=== PATIENT | female | born 1945 | race Caucasian/White ===

== ENCOUNTER → 2018-03-03 | Outpatient (CLI) | payer OTHER ==
[~2018-03-03] MED LIST: ALEVE220 MG PO; ANTIVERT25 MG PO; ASPIR 8181 MG PO; AZELASTINE137 MCG/0. NASAL; BACTRIM DS TAB1 EACH PO; CALCIUM 500 +1 EAC5 PO; CENTRUM SILVER1 EAC4 PO; CIPRO500 MG PO; FERREX 150 PLU1 EAC1 PO; FISH OIL 1,001000 M2 PO; FLAGYL500 MG PO; FLONASE 0.05%50 MCG NASAL; GLUCOSAMINE HC500 MG PO; LISINOPRIL20 MG PO; MACROBID 100 M100 M3 PO; MULTIVITAMINS PO; NASONEX17 GM NASAL; OMEPRAZOLE 20 M20 M1 PO; OMEPRAZOLE10 MG PO; PAXIL10 MG; PRILOSEC 20 MG20 MG PO; PROBIOTIC1 EAC2 PO; SINGULAIR 10 MG10 M1 PO; TRANSDERM-SCO1 PATC1 TD; TRANSDERM-SCO1 PATC1 TRANSDERM; TYLENOL EXTRA500 MG PO; VALIUM5 MG PO; VITAMIN C500 MG/15 PO; VITAMIN E400 UNIT PO; VITAMINC500 PO
--- NOTE | 2018-03-03 13:53 | EKG ---
[place] [address] ELECTROCARDIOGRAM REPORT Name: MARINE WALKER Room: [facility]#: [id number] Admission: 03/03/18 Attend Phys: Gerard Benson Discharge: Date of : 43 Report #: [id number] THIS REPORT FOR: //name// [facility] Test Date: 2018-03-03 Test Time: 11:41:11 Pat Name: MARINE WALKER Department: Room: Gender: F Personal Financial Representative: ESTER : 1945 Requested By: Lukasz Ahn Order Number: [id number] Rolando MD: Chao Allen Measurements Intervals [place] Rate: 73 P: 24 OH: 176 QRS: 20 QRSD: 88 T: 29 QT: 373 QTc: 411 Interpretive Statements Sinus rhythm Anterior infarct, old Compared to ECG 01/04/2017 20:30:35 Myocardial infarct finding now present Electronically Signed On 03-03-2018 13:53:05 CDT by Chao Allen [email or web address] <ELECTRONICALLY SIGNED> By: Chao Allen MD, [facility] 03/03/18 1353 1141 1141 Chao Allen MD, FACC /EPI
== END ==
LOC: M.CRD 11:11
DX: Z01.818 Encounter for other preprocedural examination (principal); N39.3 Stress incontinence (female) (male)

== ENCOUNTER 2018-03-25 16:41 | Emergency (ER) | payer OTHER ==
[~2018-03-25] VITALS: Ht 167.6 cm; Wt 86.2 kg
[~2018-03-25 16:41] MED LIST changes: -BACTRIM DS TAB1 EACH PO; -FERREX 150 PLU1 EAC1 PO; -MACROBID 100 M100 M3 PO; -OMEPRAZOLE 20 M20 M1 PO; -PROBIOTIC1 EAC2 PO; -SINGULAIR 10 MG10 M1 PO
[2018-03-25] MEDS ORDERED: SINGULAIR 10 MG10 M1 PO (17:16)
[2018-03-25 17:44] LABS: URINE BILIRUBIN NEGATIVE (Negative); URINE BLOOD 3+ (Negative); URINE CLARITY CLOUDY; URINE COLOR YELLOW; URINE GLUCOSE-RANDOM NEGATIVE (Negative); URINE KETONES NEGATIVE (Negative); URINE LEUKOCYTES-REFLEX 3+ (Negative); URINE NITRITE-REFLEX POSITIVE (Negative); URINE PROTEIN 3+ (Negative); URINE SPECIFIC GRAVITY 1.015 (1.005-1.030); URINE UROBILINOGEN 0.2 E.U./dl (0.2-1.0)
[2018-03-25 17:49] LABS: BACTERIA-REFLEX >30 Many /HPF (None Seen); CASTS None Seen /LPF (None Seen); CRYSTALS None Seen /LPF (None Seen); SQUAMOUS NONE SEEN /LPF (0-3); URINE RBC >20 Many /HPF (0-2); URINE WBC-REFLEX >25 Many /HPF (0-5)
[2018-03-25 17:50] LABS: ABSOLUTE BASOPHILS 0.1 thou/uL (0.0-0.2); ABSOLUTE LYMPHOCYTES 1.8 thou/uL (0.8-5.3); ABSOLUTE MONOCYTES 1.2 thou/uL (0.0-1.2); ABSOLUTE NEUTROPHILS 12.1 thou/uL (1.6-8.1); BASOPHILS 0.4 %; EOSINOPHILS 0.2 %; HEMOGLOBIN 12.2 gm/dL (12.0-15.0); LYMPHOCYTES 12.1 %; MCH 30.4 pg (26.0-34.0); MCV 92.2 fL (80.0-100.0); MONOCYTES 7.8 %; MPV 6.7 fl. (7.2-11.1); NUCLEATED RBCS 0 /100WBC; PLATELET COUNT* 247 thou/uL (150-400); POLYS 79.5 %; RBC 4.01 mil/uL (4.20-5.00); RDW-CV 12.9 % (10.5-14.5); WBC 15.3 thou/uL (4.0-11.0)
[2018-03-25] MEDS ORDERED: BACTRIM DS TAB1 EACH PO (17:55)
[2018-03-25 17:57] LABS: CALCIUM 8.1 mg/dL (8.5-10.1); CREATININE 0.9 mg/dL (0.6-1.3); POTASSIUM 3.8 mmol/L (3.5-5.1)
[2018-03-25 18:01] LABS: ALBUMIN 3.1 g/dL (3.4-5.0); TOTAL BILIRUBIN 0.6 mg/dL (<0.1-1.0); TOTAL PROTEIN 6.7 g/dL (6.4-8.2)
[2018-03-25 18:53] VITALS: BP 110/61
== END 2018-03-25 18:54 | disposition home or self-care (01) ==
LOC: M.ERS 16:41
PROVIDERS: Physician Assistant
DX: N39.0 Urinary tract infection, site not specified (principal); I10 Essential (primary) hypertension; K21.9 Gastro-esophageal reflux disease without esophagitis; Z88.0 Allergy status to penicillin

== ENCOUNTER 2018-05-04 09:31 | Inpatient (IN) | payer OTHER ==
[~2018-05-04] VITALS: Ht 167.6 cm; Wt 87.1 kg
[~2018-05-04 09:31] MED LIST changes: +BACTRIM DS TAB1 EACH PO; +SINGULAIR 10 MG10 M1 PO
[2018-05-04 09:50] LABS: URINE BILIRUBIN NEGATIVE (Negative); URINE BLOOD 1+ (Negative); URINE CLARITY SL CLOUDY; URINE COLOR YELLOW; URINE GLUCOSE-RANDOM NEGATIVE (Negative); URINE KETONES NEGATIVE (Negative); URINE LEUKOCYTES-REFLEX 3+ (Negative); URINE NITRITE-REFLEX NEGATIVE (Negative); URINE PROTEIN 1+ (Negative); URINE SPECIFIC GRAVITY <= 1.005 (1.005-1.030); URINE UROBILINOGEN 0.2 E.U./dl (0.2-1.0)
[2018-05-04 09:51] VITALS: BP 136/65
[2018-05-04 09:59] LABS: BACTERIA-REFLEX 1-9 Few /HPF (None Seen); MUCUS 0-3 Light strn/LPF (None Seen); SQUAMOUS 0-3 Few /LPF (0-3); URINE RBC 3-10 Few /HPF (0-2); URINE WBC-REFLEX >25 Many /HPF (0-5)
[2018-05-04 10:00] LABS: CASTS None Seen /LPF (None Seen); CRYSTALS None Seen /LPF (None Seen)
[2018-05-04] MEDS ORDERED: OMEPRAZOLE 20 M20 M1 PO (10:00)
[2018-05-04] MEDS ORDERED: VITAMINC500 PO (10:01)
[2018-05-04] MEDS ORDERED: PROBIOTIC1 EAC2 PO (10:02)
[2018-05-04 10:04] LABS: HEMATOCRIT 38.1 % (37.0-47.0); HEMOGLOBIN 12.5 gm/dL (12.0-15.0); MCH 30.3 pg (26.0-34.0); MCHC 32.7 g/dL (28.0-37.0); MCV 92.6 fL (80.0-100.0); MPV 7.1 fl. (7.2-11.1); NUCLEATED RBCS 0 /100WBC; PLATELET COUNT* 265 thou/uL (150-400); RBC 4.11 mil/uL (4.20-5.00); RDW-CV 12.7 % (10.5-14.5); WBC 15.7 thou/uL (4.0-11.0)
[2018-05-04 10:26] LABS: ALKALINE PHOSPHATASE 79 U/L (46-116); ANION GAP 11 mmol/L (7-16); BUN 16 mg/dL (7-18); CALCIUM 8.5 mg/dL (8.5-10.1); CHLORIDE 100 mmol/L (98-107); CO2 21 mmol/L (21-32); CREATININE 1.1 mg/dL (0.6-1.3); GLUCOSE 111 mg/dL (70-99); POTASSIUM 4.2 mmol/L (3.5-5.1); SGOT 13 U/L (15-37); SGPT 19 U/L (30-65); SODIUM 132 mmol/L (136-145); TOTAL BILIRUBIN 0.7 mg/dL (<0.1-1.0); TOTAL PROTEIN 7.1 g/dL (6.4-8.2); TROPONIN-I LEVEL <0.06 ng/mL (<0.06)
[2018-05-04 10:40] LABS: ABSOLUTE MONOCYTES 0.5 thou/uL (0.0-1.2); ABSOLUTE NEUTROPHILS 13.2 thou/uL (1.6-8.1); ANISOCYTOSIS 1+; PLATELET ESTIMATE ADEQUATE; POIKILOCYTOSIS 1+
[2018-05-04 11:51] VITALS: BP 93/46
[2018-05-04 11:55] VITALS: BP 112/58
--- NOTE | 2018-05-04 12:05 | NUR ---
PATIENT ADMITTED FROM ER TO ROOM 115. ALERT AND ORIENTED. DENIES PAIN. 2/3 BOLUS INFUSING. CEFAZOLIN GIVEN IN ER. PATIENT HAS LEFT FRAZIER INCISION FROM BASAL CELL CARCINOMA REMOVAL A FEW WEEKS AGO- PATIENT DOES DRESSING CHANGES AT NIGHT AFTER HER SHOWER. ORIENTED TO ROOM AND BED CONTROLS. VSS. CALL LIGHT WITHIN REACH. WILL CONTINUE TO MONITOR.
--- NOTE | 2018-05-04 13:20 | NUR ---
CALLED DR. MAYER WITH UPDATE ON PATIENT. PATIENT CURRENTLY HAS RIGORS. BP 98/80, HR 126, RR 20, TEMP 98.3 ORAL, SAT 100% ON RA. HYDROCODONE INEFFECTIVE FOR MUSCLE PAIN. MORPHINE GIVEN. AT BEDSIDE. WILL CONTINUE TO MONITOR.
[2018-05-04 13:25] VITALS: BP 98/80
--- NOTE | 2018-05-04 13:45 | NUR ---
DR. MAYER ADDED ZOSYN TO PATIENTS ANTIBIOTIC REGIMEN. PATIENT STATES SHE IS NOT ALLERGIC TO PCN SHE JUST GETS DIARRHEA SOMETIMES FROM IT, PATIENT IS OK WITH ADMINISTRATION OF ZOSYN.
--- NOTE | 2018-05-04 14:26 | EKG ---
[place] [address] ELECTROCARDIOGRAM REPORT Name: MARINE WALKER Room: [address] IN [facility]#: [id number] Admission: 05/04/18 Attend Phys: Cathleen Holcomb MD Discharge: Date of : 43 Report #: [id number] THIS REPORT FOR: //name// [facility] ED Test Date: 2018-05-04 Test Time: 10:16:17 Pat Name: MARINE WALKER Department: Room: Gender: F Surgical Services Asst: Zana ERWIN : 1945 Requested By: Milan Larios Order Number: [id number] MD: Chao Allen Measurements Intervals [place] Rate: 109 P: -13 NC: 149 QRS: -15 QRSD: 92 T: 19 QT: 299 QTc: 403 Interpretive Statements Sinus tachycardia Borderline left axis deviation Low voltage, precordial leads Baseline wander in lead(s) V4,V6 Compared to ECG 03/03/2018 11:41:11 Low QRS voltage now present Sinus rhythm no longer present Myocardial infarct finding no longer present Electronically Signed On 05-04-2018 14:26:25 CDT by Chao Allen [email or web address] <ELECTRONICALLY SIGNED> By: Chao Allen MD, FACC 05/04/18 1426 1016 1016 Chao Allen MD, FAC /EPI
--- NOTE | 2018-05-04 16:02 | NUR ---
PATIENT RESTING COMFORTABLY AT THIS TIME. IVF INFUSING ORDERED. ZOSYN ADMINISTERED. PATIENT FEELING BETTER. DAKOTA ROBLES APPLIED TO HELP WITH CHILLS. REPORT TO CHARLIE SANTOS.
[2018-05-04 17:03] VITALS: BP 91/39
--- NOTE | 2018-05-04 17:19 | NUR ---
ASSUMED TRANSFER OF CARE AT 1600. AGREE WITH PREVIOUS NURSES ASSESSMENT. PATIENT REMAINS ALERT AND ORIENTED. VITALS REMAIN STABLE ON ROOM AIR.FLUIDS INFUSING ORDERED. REMAINS AT BEDSIDE. CALL LIGHT IS WITHIN REACH AND NURSING WILL CONTINUE TO MONITOR.
[2018-05-04 19:55] VITALS: BP 94/37
--- NOTE | 2018-05-05 04:55 | NUR ---
PT RESTED WELL THORUGHOUT HOURLY ROUNDS REMAIN AFEBRILE, IV FLUIDS INFUSING AND IV ZOSYN GIVEN PRESCRIBED. UP VOIDING WITHOUT C/O OF RETENTION OR DISCOMFORT. WILL CONTINUE WITH CURRENT PLAN OF CARE.
[2018-05-05 05:24] LABS: HEMATOCRIT 28.1 % (37.0-47.0); MCH 30.5 pg (26.0-34.0); MCHC 32.6 g/dL (28.0-37.0); MCV 93.6 fL (80.0-100.0); MPV 7.1 fl. (7.2-11.1); WBC 14.4 thou/uL (4.0-11.0)
[2018-05-05 05:32] LABS: HEMOGLOBIN 9.2 gm/dL (12.0-15.0)
[2018-05-05 05:38] LABS: CALCIUM 7.3 mg/dL (8.5-10.1); CREATININE 1.1 mg/dL (0.6-1.3); MAGNESIUM 1.3 mg/dL (1.8-2.4); POTASSIUM 3.8 mmol/L (3.5-5.1)
--- NOTE | 2018-05-05 05:38 | NUR ---
AGREE WITH ALL CHARTING BY DELICIA ROSA.
[2018-05-05 09:37] VITALS: BP 114/59
--- NOTE | 2018-05-05 15:45 | NUR ---
PT.ALERT AND ORIENTED. STATED SHE LIVES WITH HER . SHE IS INDEPENDENT WITH EVERYTHING. DRIVES,COOKS,SHOPS,CLEANS,DOES THE LAUNDRY. SHE DOES HAVE TO GO DOWN [address] TO DO THE LAUNDRY. SHE DOES NOT HAVE TROUBLE WITH THE STEPS. SHE HAS NO HX OF DME/HH/SNF. SHE DOES NOT FEEL SHE WILL HAVE ANY DISCHARGE NEEDS.
[2018-05-05 16:00] VITALS: BP 111/55
--- NOTE | 2018-05-05 18:44 | NUR ---
ASSUMED CARE OF PATIENT AFTER MORNING REPORT. ALERT AND ORIENTED X4. ASSESSMENT COMPLETED AND CHARTED. VSS ON ROOM AIR. NO COMPLAINTS OF PAIN, NAUSEA, OR SOA THIS SHIFT. IV IS PATENT, FLUIDS AND ANTIBIOTICS INFUSING ORDERED. CURRENTLY NPO FOR CT TONIGHT, IF RADIOLOGY CAN FIT HER IN AFTER SHE HAS BEEN NPO FOR 4 HOURS, OR CT IN THE MORNING IF UNABLE TO FIT HER IN. HOURLY ROUNDS MAINTAINED, CALL LIGHT IN REACH, NURSING WILL CONTINUE TO MONITOR.
[2018-05-05 20:00] VITALS: BP 123/60
[2018-05-06 04:12] LABS: ABSOLUTE BASOPHILS 0.1 thou/uL (0.0-0.2); ABSOLUTE EOSINOPHILS 0.1 thou/uL (0.0-0.7); ABSOLUTE LYMPHOCYTES 1.2 thou/uL (0.8-5.3); ABSOLUTE MONOCYTES 0.9 thou/uL (0.0-1.2); ABSOLUTE NEUTROPHILS 5.4 thou/uL (1.6-8.1); BASOPHILS 0.9 %; EOSINOPHILS 0.9 %; HEMOGLOBIN 9.4 gm/dL (12.0-15.0); LYMPHOCYTES 16.1 %; MCH 31.1 pg (26.0-34.0); MCHC 33.6 g/dL (28.0-37.0); MCV 92.6 fL (80.0-100.0); MONOCYTES 11.4 %; MPV 7.4 fl. (7.2-11.1); NUCLEATED RBCS 0 /100WBC; PLATELET COUNT* 193 thou/uL (150-400); POLYS 70.7 %; RBC 3.02 mil/uL (4.20-5.00); RDW-CV 13.1 % (10.5-14.5); WBC 7.7 thou/uL (4.0-11.0)
[2018-05-06 05:16] LABS: ALBUMIN 2.1 g/dL (3.4-5.0); CALCIUM 7.6 mg/dL (8.5-10.1); CREATININE 0.8 mg/dL (0.6-1.3); MAGNESIUM 1.5 mg/dL (1.8-2.4); POTASSIUM 3.3 mmol/L (3.5-5.1); TOTAL BILIRUBIN 0.4 mg/dL (<0.1-1.0)
--- NOTE | 2018-05-06 05:31 | NUR ---
ASSUMED CARE OF PT AT 1900 PT ALERT AND ORIENTED X4. VS AND ASSESSMENT STABLE. PT TAKEN TO CT AT 2100 AND RETURNED TO UNIT. PT THEN REQUESTED TYLENOL FOR AN HEADACHE THEN SLEPT THROUGH THE NIGHT. WILL CONTINUE PLAN OF CARE.
[2018-05-06 07:30] VITALS: BP 158/68
--- NOTE | 2018-05-06 15:00 | NUR ---
HELPED PT.WITH ADVANCE DIRECTIVE AND DPOA FOR HEALTH CARE DECISIONS AND NOTARIZED IT. COPY PLACED ON CHART. ORIGINAL AND COPIES GIVEN TO PT.
[2018-05-06 16:07] VITALS: BP 147/76
--- NOTE | 2018-05-06 18:28 | NUR ---
PT REMAINS A&OX4. VITALS REMAINED STABLE. NO REPORTS OF NAUSEA, PAIN, OR SOA. IV PATENT IN RIGHT FOREARM. PT AMBULATES OCCASIONALLY INDEPENDENTLY. HOURLY ROUNDS MAINTAINED. ANTICIPATES DISCHARGE TOMORROW, WILL CONTINUE TO MONITOR.
[2018-05-06 19:54] LABS: MAGNESIUM 1.6 mg/dL (1.8-2.4); POTASSIUM 4.2 mmol/L (3.5-5.1)
--- NOTE | 2018-05-06 20:04 | NUR ---
DALLIN GUERRA HAS REVIEWED AND AGREES WITH STUDENT NURSES CHARTING THROUGHOUT SHIFT.
[2018-05-07 02:59] LABS: MCH 30.9 pg (26.0-34.0); MCHC 33.3 g/dL (28.0-37.0); MCV 92.9 fL (80.0-100.0); MPV 7.5 fl. (7.2-11.1); RBC 3.22 mil/uL (4.20-5.00); RDW-CV 12.9 % (10.5-14.5); WBC 7.1 thou/uL (4.0-11.0)
[2018-05-07 03:13] LABS: ALBUMIN 2.3 g/dL (3.4-5.0); CALCIUM 8.2 mg/dL (8.5-10.1); CREATININE 0.8 mg/dL (0.6-1.3); MAGNESIUM 1.7 mg/dL (1.8-2.4); TOTAL BILIRUBIN 0.4 mg/dL (<0.1-1.0); TOTAL PROTEIN 5.9 g/dL (6.4-8.2)
--- NOTE | 2018-05-07 08:09 | NUR ---
UP AD ALBA IN ROOM. ALERT AND ORIENTED. CONTINUES ON IV ANTIBIODICS. TYLENOL GIVEN FOR HEADACHE AND HELPFUL. VOIDING WITHOUT DIFFICULTY. DRY DRESSING OVER LEFT LOWER EXTREMITY WOUND. CALL LIGHT WITHIN REACH.
[2018-05-07 08:35] VITALS: BP 130/67
[2018-05-07] MEDS ORDERED: CIPRO500 MG PO (08:44)
[2018-05-07] MEDS ORDERED: MACROBID 100 M100 M3 PO (08:44)
[2018-05-07] MEDS ORDERED: FERREX 150 PLU1 EAC1 PO (08:44)
[2018-05-07 09:50] VITALS: BP 147/76
--- NOTE | 2018-05-07 10:30 | NUR ---
PATIENT DISCHARGED TO HOME. DISCHARGE PAPERS REVIEWED AND SIGNED. PRESCRIPTIONS AND INFORMATION SHEETS GIVEN. IV REMOVED. SPOKE WITH UROLOGY AND RECOMMENDATIONS FOR DIRECTOR OF ONCOLOGY GIVEN TO PATIENT. PATIENT DENIES ANY FURTHER NEEDS. PATIENT TAKEN BY WHEELCHAIR TO EXIT. LEFT WITH .
--- NOTE | 2018-05-09 08:17 | CON ---
[address] [address] CONSULTATION Name: MARINE WALKER Room: [address] IN .R.#: [id number] Admission: 05/04/18 Attend Phys: Cathleen Holcomb MD Discharge: 05/07/18 Date of : 43 Report #: [id number] THIS REPORT FOR: //name// CC: Jose Daniel Holcomb DATE OF SERVICE: 05/05/2018 REFERRING PHYSICIAN: Cathleen Holcomb MD REASON FOR CONSULTATION: Right hydronephrosis and flank pain. HISTORY OF PRESENT ILLNESS: This is a 72-year-old female who follows in our office with Dr. Ahn regarding voiding dysfunction and urinary incontinence. About 2 days ago she developed right flank pain and chills intermittently. This became unremitting and she presented to the Emergency Department after an urgent care visit. She felt feverish and had chills at home, but did not take her temperature. Complains of intermittent right-sided flank pain with no exacerbating or relieving factors. No fever or chills. Reports chronic bladder prolapse for which she sees Gynecology and is hoping to have repair. She denies dysuria or gross hematuria. Some nausea, but no vomiting. She denies straining or sensation of incomplete emptying. PAST MEDICAL HISTORY: As above. Also, has a history of prior UTI years ago. She also has a history of gastroesophageal reflux. History of Meniere disease for which she follows with Neurology. Has hypertension as well for which she takes medication. ALLERGIES: INCLUDE PENICILLIN. MEDICATION LIST: Reviewed. She has been started on Rocephin empirically. PAST SURGICAL HISTORY: Includes cholecystectomy, oophorectomy, intestinal surgery, and eye surgery. FAMILY HISTORY: She does not know of any renal disease in the family. SOCIAL HISTORY: She quit tobacco years ago. Does not drink alcohol. She is and accompanied by her . REVIEW OF SYSTEMS: As per the history of present illness. No chest pain, shortness of breath or palpitations. PHYSICAL EXAMINATION: VITAL SIGNS: Temperature 36.9, pulse 82, respirations 16, blood pressure 114/59[place] [address] CONSULTATION Name: MARINE WALKER Room: [address]#: [id number] Admission: 05/04/18 Attend Phys: Cathleen Holcomb MD Discharge: 05/07/18 Date of : 43 Report #: [id number] GENERAL: This is a 72-year-old female, in no acute distress. She is awake, alert and oriented x 3. HEENT: Normocephalic, atraumatic. Extraocular movements are intact. NECK: Supple. No JVD. LUNGS: Respiratory effort and excursion are normal. CARDIAC: Rhythm is regular. Radial pulses are palpable. ABDOMEN: Soft, nontender and nondistended. Spine and costovertebral angles are nontender. Exam does not reproduce her symptoms. Bladder is nonpalpable. PELVIC: Deferred. EXTREMITIES: Warm. Moves all extremities well. No peripheral edema. LABORATORY DATA: Include sodium 139, potassium 3.8, chloride 109, CO2 of 23, BUN 13, creatinine 1.1, glucose 88. Hemoglobin is 9.2, white count 14.4, platelet count 187,000. Urinalysis revealed a few bacteria, 3-10 red cells and greater than 25 white cells. Urine and blood cultures are pending. Noncontrast CT scan of the abdomen and pelvis revealed perinephric stranding and mild right hydronephrosis. This also revealed a possible pancreatic lesion. Urologic findings were discussed with the patient. IMPRESSION: Right flank pain and subjective fever/chills as well as mild hydronephrosis with no definite source of obstruction. Findings may represent pyelonephritis. Radiology mentioned getting a contrast study to evaluate this further. I will order a CT abdomen and pelvis with IV contrast including delayed images for this purpose. I agree with Rocephin empirically pending culture results. We will follow along. We will defer evaluation of the pancreatic lesion and anemia to the primary service. <ELECTRONICALLY SIGNED> By: Alvaro Maldonado MD 05/09/18 0817 1222 [id number] Maldonado MD /nt
== END 2018-05-07 10:30 | disposition home or self-care (01) | DRG 690 ==
LOC: M.ERS 09:31 → M.ORTHSURG 10:21 → M.TBA-ER 10:21 → M.ORTHSURG 11:29
PROVIDERS: Emergency Medicine; Urology; ADMIT Internal Medicine
DX: N12 Tubulo-interstitial nephritis, not specified as acute or chronic (principal); R65.10 Systemic inflammatory response syndrome (SIRS) of non-infectious origin without acute organ dysfunction; E44.1 Mild protein-calorie malnutrition; H81.09 Meniere's disease, unspecified ear; K21.9 Gastro-esophageal reflux disease without esophagitis; N13.30 Unspecified hydronephrosis; F41.9 Anxiety disorder, unspecified; B96.20 Unspecified Escherichia coli [E. coli] as the cause of diseases classified elsewhere; N81.10 Cystocele, unspecified; D64.9 Anemia, unspecified; I10 Essential (primary) hypertension; I95.9 Hypotension, unspecified; Z79.2 Long term (current) use of antibiotics; Z79.899 Other long term (current) drug therapy; Z79.82 Long term (current) use of aspirin; Z88.0 Allergy status to penicillin; Z90.49 Acquired absence of other specified parts of digestive tract; Z87.891 Personal history of nicotine dependence; Z90.722 Acquired absence of ovaries, bilateral

== ENCOUNTER 2018-10-30 16:46 | Inpatient (IN) | payer OTHER ==
[~2018-10-30] VITALS: Ht 167.6 cm; Wt 87.5 kg
[~2018-10-30 16:46] MED LIST changes: +FERREX 150 PLU1 EAC1 PO; +MACROBID 100 M100 M3 PO; +OMEPRAZOLE 20 M20 M1 PO; +PROBIOTIC1 EAC2 PO
[2018-10-30 16:51] VITALS: BP 113/70
[2018-10-30 17:34] LABS: HEMATOCRIT 35.6 % (37.0-47.0); HEMOGLOBIN 11.9 gm/dL (12.0-15.0); MCH 29.3 pg (26.0-34.0); MCHC 33.3 g/dL (28.0-37.0); MCV 87.9 fL (80.0-100.0); MPV 6.9 fl. (7.2-11.1); NUCLEATED RBCS 0 /100WBC; PLATELET COUNT* 292 thou/uL (150-400); RBC 4.05 mil/uL (4.20-5.00); RDW-CV 13.2 % (10.5-14.5)
[2018-10-30 17:44] LABS: CALCIUM 8.4 mg/dL (8.5-10.1); CREATININE 1.1 mg/dL (0.6-1.3); POTASSIUM 3.6 mmol/L (3.5-5.1)
[2018-10-30 17:48] LABS: ALBUMIN 2.8 g/dL (3.4-5.0); TOTAL BILIRUBIN 0.5 mg/dL (<0.1-1.0); TOTAL PROTEIN 6.8 g/dL (6.4-8.2)
[2018-10-30 17:59] LABS: ABSOLUTE BASOPHILS 0.2 thou/uL (0.0-0.2); ABSOLUTE MONOCYTES 0.5 thou/uL (0.0-1.2); ABSOLUTE NEUTROPHILS 15.3 thou/uL (1.6-8.1)
[2018-10-30 18:00] LABS: PLATELET ESTIMATE ADEQUATE
[2018-10-30 18:08] LABS: BE -6.5 mmol/L (-2 to +3); HCO3 16.7 mmol/L (22.0-26.0); PCO2 26.4 mmHg (35.0-45.0); pH 7.419 (7.340-7.450)
[2018-10-30 18:15] LABS: PHOSPHORUS* 2.8 mg/dL (2.5-4.9); TROPONIN-I LEVEL <0.06 ng/mL (<0.06)
[2018-10-30 19:33] LABS: URINE BILIRUBIN NEGATIVE (Negative); URINE BLOOD TRACE (Negative); URINE CLARITY SL CLOUDY; URINE COLOR STRAW; URINE GLUCOSE-RANDOM NEGATIVE (Negative); URINE KETONES NEGATIVE (Negative); URINE PROTEIN NEGATIVE (Negative); URINE SPECIFIC GRAVITY <= 1.005 (1.005-1.030); URINE UROBILINOGEN 0.2 E.U./dl (0.2-1.0)
[2018-10-30 19:34] LABS: URINE LEUKOCYTES-REFLEX 3+ (Negative); URINE NITRITE-REFLEX POSITIVE (Negative)
[2018-10-30 19:43] LABS: SQUAMOUS 0-3 Few /LPF (0-3); WBC CLUMPS Few (None Seen)
[2018-10-30 19:44] LABS: URINE WBC-REFLEX >25 Many /HPF (0-5)
[2018-10-30 19:45] LABS: BACTERIA-REFLEX >30 Many /HPF (None Seen); CASTS None Seen /LPF (None Seen); MUCUS None Seen strn/LPF (None Seen); URINE RBC 0-2 Rare /HPF (0-2)
[2018-10-30 19:46] LABS: CRYSTALS None Seen /LPF (None Seen)
[2018-10-30 19:50] VITALS: BP 117/59
[2018-10-30 20:30] VITALS: BP 105/48
--- NOTE | 2018-10-30 20:30 | NUR ---
RECEIVED REPORT FROM ER, AMBULATED TO BED FROM CART WITH STEADY GAIT. NO ACUTE DISTRESS NOTED. TEMP AT THIS TIME 97.9. IV FLUIDS INFUSING. TELEMETRY APPLIED SHOWING SR. SEE ADMISSION ASSESSMENT AND HX. WILL CONT TO MONITOR AND ASSIST NEEDED.
[2018-10-30] MEDS ORDERED: OXYBUTYNIN 5 MG5 M2 PO (21:04)
[2018-10-30 23:15] VITALS: BP 125/56
[2018-10-31 04:00] VITALS: BP 103/52
--- NOTE | 2018-10-31 06:10 | NUR ---
PT HAD 2 EPISODES OF CHILLING BUT REMAINS AFEBRILE. GAIT STEADY TO AND FROM BR. TELEMETRY CONT TO SHOW SR. NO CHANGE IN ASSESSMENT. HS GOALS OF REST AND SAFETY ACHIEVED. HOURLY ROUNDING OBSERVED.
[2018-10-31 08:00] VITALS: BP 118/58
[2018-10-31 09:24] LABS: ABSOLUTE BASOPHILS 0.1 thou/uL (0.0-0.2); ABSOLUTE EOSINOPHILS 0.1 thou/uL (0.0-0.7); ABSOLUTE LYMPHOCYTES 1.5 thou/uL (0.8-5.3); ABSOLUTE MONOCYTES 1.2 thou/uL (0.0-1.2); ABSOLUTE NEUTROPHILS 8.9 thou/uL (1.6-8.1); BASOPHILS 0.6 %; EOSINOPHILS 0.5 %; HEMATOCRIT 29.2 % (37.0-47.0); LYMPHOCYTES 12.6 %; MCH 30.2 pg (26.0-34.0); MCHC 33.5 g/dL (28.0-37.0); MONOCYTES 10.2 %; MPV 7.3 fl. (7.2-11.1); NUCLEATED RBCS 0 /100WBC; PLATELET COUNT* 236 thou/uL (150-400); POLYS 76.1 %; RBC 3.25 mil/uL (4.20-5.00); RDW-CV 13.3 % (10.5-14.5); WBC 11.7 thou/uL (4.0-11.0)
[2018-10-31 09:36] LABS: HEMOGLOBIN 9.8 gm/dL (12.0-15.0)
[2018-10-31 09:42] LABS: CALCIUM 7.6 mg/dL (8.5-10.1); CREATININE 0.8 mg/dL (0.6-1.3); MAGNESIUM 1.6 mg/dL (1.8-2.4); POTASSIUM 3.3 mmol/L (3.5-5.1)
[2018-10-31] MEDS ORDERED: BACTRIM DS TAB1 EACH PO (10:09)
[2018-10-31 11:15] VITALS: BP 127/61
[2018-10-31 12:01] VITALS: BP 127/61
[2018-10-31 12:03] VITALS: BP 127/61
--- NOTE | 2018-10-31 12:55 | NUR ---
DISCHARGE INSTRUCTIONS REVIEWED WITH PT. DISCHARGE INSTRUCTIONS, EDUCATION MATERIALS AND PRESCRIPTION SENT WITH PT. PROJECT LEADER AND PIV REMOVED. ALL QUESTIONS ANSWERED
== END 2018-10-31 12:57 | disposition home or self-care (01) | DRG 872 ==
LOC: M.ERS 16:46 → M.2W 18:30 → M.TBA-ER 18:30 → M.2W 20:10
PROVIDERS: Family Medicine; Personal Emergency Response Attendant; ADMIT Internal Medicine
DX: A41.9 Sepsis, unspecified organism (principal); N39.0 Urinary tract infection, site not specified; E44.0 Moderate protein-calorie malnutrition; E83.42 Hypomagnesemia; E87.6 Hypokalemia; N18.2 Chronic kidney disease, stage 2 (mild); I12.9 Hypertensive chronic kidney disease with stage 1 through stage 4 chronic kidney disease, or unspecified chronic kidney disease; K52.9 Noninfective gastroenteritis and colitis, unspecified; K21.9 Gastro-esophageal reflux disease without esophagitis; F41.9 Anxiety disorder, unspecified; Z68.31 Body mass index [BMI] 31.0-31.9, adult; Z90.49 Acquired absence of other specified parts of digestive tract; Z90.722 Acquired absence of ovaries, bilateral; Z90.710 Acquired absence of both cervix and uterus; Z79.82 Long term (current) use of aspirin; Z79.899 Other long term (current) drug therapy; Z87.891 Personal history of nicotine dependence; Z80.0 Family history of malignant neoplasm of digestive organs; Z80.52 Family history of malignant neoplasm of bladder; Z83.3 Family history of diabetes mellitus